=== PATIENT | female | born 1970 | race Caucasian/White ===

== ENCOUNTER 2019-10-26 18:27 | Emergency (ER) | payer MEDICAID, OTHER ==
[~2019-10-26] VITALS: Ht 165.1 cm; Wt 125.2 kg
[2019-10-26] MEDS ORDERED: NORCO 5-325 TA1 EAC2 PO (19:34)
[2019-10-26] MEDS ORDERED: ATENOLOL 50MG T50 MG PO (20:14)
[2019-10-26 20:33] VITALS: BP 151/75
== END 2019-10-26 20:34 | disposition home or self-care (01) ==
LOC: M.ERS 18:27
DX: M17.12 Unilateral primary osteoarthritis, left knee (principal); I10 Essential (primary) hypertension; E66.01 Morbid (severe) obesity due to excess calories; Z68.42 Body mass index [BMI] 45.0-49.9, adult; Z98.890 Other specified postprocedural states; Z90.49 Acquired absence of other specified parts of digestive tract; Z90.711 Acquired absence of uterus with remaining cervical stump; Z88.0 Allergy status to penicillin; Z88.1 Allergy status to other antibiotic agents; Z88.8 Allergy status to other drugs, medicaments and biological substances